=== PATIENT | male | born 1995 | race Asian ===

== ENCOUNTER 2018-06-09 14:16 | Emergency (ER) | payer OTHER ==
[~2018-06-09] VITALS: Ht 172.7 cm; Wt 56.8 kg
[2018-06-09 14:18] VITALS: BP 112/76
[2018-06-09] MEDS ORDERED: BACITRACIN 0.9 GM PACKET OINTMENT TP ONE (15:30)
[2018-06-09] MEDS ORDERED: IBUPROFEN 800 MG TABLET PO ONE (15:30)
[2018-06-09] MEDS ORDERED: POVIDONE-IODINE 10% 15 ML SOLUTION UD TP ONE (15:30)
[2018-06-09] MEDS ORDERED: LIDOCAINE 1% 10 ML VIAL INJ ONE (15:30)
== END 2018-06-09 16:00 | disposition home or self-care (01) ==
LOC: EMS 14:18
DX: S61.011A Laceration without foreign body of right thumb without damage to nail, initial encounter (principal); W45.8XXA Other foreign body or object entering through skin, initial encounter; Y93.89 Activity, other specified; Y92.89 Other specified places as the place of occurrence of the external cause; Y99.8 Other external cause status
CPT/HCPCS: 12002; 99283; J3490